=== PATIENT | male | born 1995 | race Caucasian/White ===

== ENCOUNTER 2017-07-04 09:58 | Emergency (ER) | payer OTHER ==
[~2017-07-04] VITALS: Ht 177.8 cm; Wt 65.9 kg
[2017-07-04 09:59] VITALS: BP 122/70
[2017-07-04] MEDS ORDERED: IBUPROFEN 600 MG TAB PO ONE (10:30)
--- NOTE | 2017-07-04 10:56 | REP ---
Right hand four views: There are no comparisons. There is a nondisplaced spiral fracture of the proximal shaft of the ring finger metacarpal. There is no dislocation. Mineralization joint spaces are normal. There is no foreign body or calcification. Half half Signed by Demario Aggarwal MD 07/04/2017 10:48 A
== END 2017-07-04 11:23 | disposition home or self-care (01) ==
LOC: M ED 09:58
DX: S62.354A Nondisplaced fracture of shaft of fourth metacarpal bone, right hand, initial encounter for closed fracture (principal); W23.1XXA Caught, crushed, jammed, or pinched between stationary objects, initial encounter; Y92.830 Public park as the place of occurrence of the external cause; Y93.89 Activity, other specified; Y99.8 Other external cause status; F17.210 Nicotine dependence, cigarettes, uncomplicated

== ENCOUNTER 2020-10-29 18:20 | Emergency (ER) | payer MEDICAID, OTHER, SELFPAY ==
[~2020-10-29] VITALS: Ht 177.8 cm; Wt 60.8 kg
[2020-10-29] MEDS ORDERED: FLUORESCEIN OPHTH 1 MG STRIP OU ONE (19:15)
[2020-10-29] MEDS ORDERED: TETRACAINE 0.5% OPHTH SOLN 4ML OU ONE (19:15)
[2020-10-29] MEDS ORDERED: CIPROFLOXACIN 0.3% OPHTH SOLN 2.5ML OS ONE (19:45)
[2020-10-29] MEDS ORDERED: CIPR0.3S6 OS (19:47)
[2020-10-29 20:10] VITALS: BP 126/84
== END 2020-10-29 20:12 | disposition home or self-care (01) ==
LOC: M ED 18:20
DX: S05.02XA Injury of conjunctiva and corneal abrasion without foreign body, left eye, initial encounter (principal); H11.32 Conjunctival hemorrhage, left eye; W55.03XA Scratched by cat, initial encounter; Y92.89 Other specified places as the place of occurrence of the external cause; Y93.K9 Activity, other involving animal care; Y99.8 Other external cause status

== ENCOUNTER 2023-12-18 16:31 | Emergency (ER) | payer MEDICAID, OTHER ==
[~2023-12-18] VITALS: Ht 175.3 cm; Wt 57.9 kg
[~2023-12-18 16:31] MED LIST: CIPR0.3S37 OS
[2023-12-18 16:32] VITALS: BP 134/76; TEMP 97.6; O2SAT 97
== END 2023-12-18 20:01 | disposition left against medical advice (07) ==
LOC: M ED 16:31
DX: Z53.21 Procedure and treatment not carried out due to patient leaving prior to being seen by health care provider (principal)

== ENCOUNTER 2024-03-29 22:20 | Emergency (ER) | payer OTHER ==
[~2024-03-29] VITALS: Ht 175.3 cm; Wt 59.6 kg
[2024-03-29] MEDS: TETRACAINE 0.5% OPHTH SOLN 4ML OD STA (00:10)
[2024-03-29] MEDS ORDERED: APPROPRIATE DILUENT IV STA (22:42)
[2024-03-29] MEDS: ACETAMINOPHEN *IV* 1,000 MG in IV 1 EA IV ONE (22:59)
[2024-03-29] MEDS: AMPICILLIN SOD/SULBACTAM SOD 3 GM in D5W MINI-BAG PLUS 100 ML IV ONE (23:16)
[2024-03-29] MEDS: IRRIGATION OPHTH SOLN (EYE WASH) 120ML OD STA (23:35)
[2024-03-29] MEDS: FLUORESCEIN OPHTH 1MG STRIP OD STA (23:35)
[2024-03-30 00:14] VITALS: BP 121/74; TEMP 97.1; O2SAT 100
== END 2024-03-30 00:15 | disposition short-term general hospital (02) ==
LOC: M ED 22:20
DX: S01.111A Laceration without foreign body of right eyelid and periocular area, initial encounter (principal); Y92.019 Unspecified place in single-family (private) house as the place of occurrence of the external cause; Y93.9 Activity, unspecified; Y99.9 Unspecified external cause status; W55.03XA Scratched by cat, initial encounter
CPT/HCPCS: 96365; 99284; J0131; J0295

== ENCOUNTER → 2024-06-29 | Outpatient (REF) | payer OTHER | LOC: M LAB REF 17:27 | PROVIDERS: ATTEND Otolaryngology | DX: H61.891 Other specified disorders of right external ear (principal) ==

== ENCOUNTER 2024-08-14 19:55 | Emergency (ER) | payer OTHER ==
[~2024-08-14] VITALS: Ht 175.3 cm; Wt 60.0 kg
[2024-08-14 19:58] VITALS: BP 112/75; TEMP 97.9; O2SAT 97
[2024-08-14] MEDS ORDERED: VENL75CA47 (19:59)
== END 2024-08-14 21:10 | disposition home or self-care (01) ==
LOC: M ED 19:55
DX: F32.A Depression, unspecified (principal); Z79.899 Other long term (current) drug therapy